=== PATIENT | female | born 1990 | race Caucasian/White ===

== ENCOUNTER → 2016-05-26 | Outpatient (CLI) | payer OTHER ==
[~2016-05-26] MED LIST: /MOM400 PO; ACET50TA PO; ALBUTEROL INHALATION; AMO250 PO; AMO500 PO; ANUS2.5C2 TOP; AUG875 PO; BLEPHGTTS TOPICAL; COLA50CA3 PO; DIFLUC150 PO; DOXYCYC100 PO; FLAGYL500 PO; IBUP600T; IBUP600T26 PO; IBUP80TA PO; NASACORTAQ NASALLY; PERC5TAB8; ROBITUSSDM PO; TRANSDERM TOPICAL; YAZ PO; [UNRECOGNIZED DRUG - OTHER] PO
[2016-05-26 10:30] LABS: BASO % 0.4 % (0.0-1.0); EOS # 0.1 K/mm3 (0.0-0.50); EOS % 1.5 % (0.0-3.0); LARGE UNSTAINED CELL # 0.1 K/mm3 (0.0-0.4); LARGE UNSTAINED CELL % 1.9 % (0.0-4.0); LYMPH % 29.3 % (24.0-44.0); MEAN CORPUSCULAR HEMOGLOBIN 28.3 pg (27.0-33.0); MEAN CORPUSCULAR HGB CONC 33.4 g/dl (32.0-36.5); MEAN CORPUSCULAR VOLUME 84.7 fl (80.0-96.0); MONO # 0.3 K/mm3 (0.0-0.8); MONO % 4.7 % (0.0-5.0); NEUTROPHILS % 62.2 % (36.0-66.0); PLATELET COUNT, AUTOMATED 244 k/mm3 (150-450); RED CELL DISTRIBUTION WIDTH 13.4 % (11.5-14.5); WHITE BLOOD COUNT 6.5 K/mm3 (4.0-10.0)
[2016-05-26 11:31] LABS: HBsAg Prenatal NEGATIVE (NEGATIVE)
== END ==
LOC: M LAB 09:53
PROVIDERS: ATTEND Advanced Practice Midwife
DX: Z34.81 Encounter for supervision of other normal pregnancy, first trimester (principal)

== ENCOUNTER → 2016-05-28 | Outpatient (REF) | payer OTHER | LOC: M LAB REF 17:14 | PROVIDERS: ATTEND Advanced Practice Midwife | DX: Z34.81 Encounter for supervision of other normal pregnancy, first trimester (principal) ==

== ENCOUNTER → 2016-06-06 | Outpatient (CLI) | payer OTHER ==
[2016-06-06 09:07] LABS: MEAN CORPUSCULAR HEMOGLOBIN 27.7 pg (27.0-33.0); MEAN CORPUSCULAR HGB CONC 32.6 g/dl (32.0-36.5); MEAN CORPUSCULAR VOLUME 84.8 fl (80.0-96.0); RED CELL DISTRIBUTION WIDTH 13.7 % (11.5-14.5); WHITE BLOOD COUNT 7.7 K/mm3 (4.0-10.0)
[2016-06-06 09:30] LABS: ALT/SGPT 18 U/L (12-78); AST/SGOT 11 U/L (15-37); BILIRUBIN,TOTAL 0.3 MG/DL (0.2-1.0); CREATININE FOR GFR 0.49 MG/DL (0.55-1.02); CREATININE, SERUM 0.5 MG/DL (0.6-1.0); GLOMERULAR FILTRATION RATE > 60.0 (>60); URIC ACID 3.9 MG/DL (2.6-6.0)
== END ==
LOC: M LAB 08:25
PROVIDERS: ATTEND Advanced Practice Midwife
DX: Z34.81 Encounter for supervision of other normal pregnancy, first trimester (principal)

== ENCOUNTER → 2016-06-25 | Outpatient (REF) | payer OTHER | LOC: M LAB REF 17:05 | PROVIDERS: ATTEND Advanced Practice Midwife | DX: Z34.81 Encounter for supervision of other normal pregnancy, first trimester (principal) ==

== ENCOUNTER → 2016-07-22 | Outpatient (CLI) | payer OTHER ==
[2016-07-22 18:49] LABS: FREE T4 0.93 NG/DL (0.76-1.46)
--- NOTE | 2016-08-03 02:56 | REP ---
Clinical: Anatomical evaluation. Comparison: None . Findings: Examination demonstrates a single live intrauterine in breech/transverse presentation. motion is identified by technologist. Placenta is noted posteriorly and grade zero without evidence for placenta previa or abruption. Amniotic fluid volume is normal. Cervix measures 4.7 cm in length and appears closed. No evidence for nuchal cord. Gestational age by current measurements 18 weeks 5 days with MANA 12/18/2016 . FHR equals 150 beats per minute. BPD 4.3 cm 18-week 6 days HC 15.4 cm 18 weeks 2 days AC 13.8 cm 19 weeks 2 days FL 3.0 cm 19 weeks 1 day HL 2.7 cm 18 weeks 3 days HC/AC ratio 1.11 Estimated weight 273 grams ( 59th percentile). Anatomical assessment demonstrates normal structures including cranium, choroid plexus, cavum, lungs, diaphragm, stomach, cord insertion/three-vessel cord, kidneys/bladder, spine, and upper extremities. Limited evaluation of the posterior fossa, facial features, heart/ventricular outflow tracts, and lower extremities noted Impression: Anatomical limitations as described above may warrant reevaluation. The remainder of the anatomical assessment is normal. Estimated weight is normal. Signed by Romero Vu MD 08/03/2016 02:46 A
== END ==
LOC: M SMT 12:55
PROVIDERS: ATTEND Advanced Practice Midwife
DX: Z36 Encounter for antenatal screening of mother (principal); Z3A.18 18 weeks gestation of pregnancy

== ENCOUNTER → 2016-09-08 | Outpatient (CLI) | payer OTHER ==
[~2016-09-08] MED LIST changes: +COLA100C5 PO; +IBUP-1114 PO; +MOM30SS PO; +PRENTAB9 PO
--- NOTE | 2016-09-08 10:15 | REP ---
OB ULTRASOUND: Real-time sonographic evaluation of the gravid uterus performed utilizing transabdominal and endovaginal technique. There is a single living intrauterine gestation, estimated gestational age 25 weeks 4 days. EDC 12/18/2016. Today's measurements indicate appropriate growth. BPD 64 mm 25 weeks 6 days, 54th percentile HC 238 mm 25 weeks 6 days, 54th percentile AC 224 mm 26 weeks 6 days, 75th percentile FL 49 mm 26 weeks 4 days, 72nd percentile HC/AC ratio 1.06 within normal range. Estimated weight 955 grams, 70th percentile. Cervix is closed and measures 3.5 cm in length. heart rate 150 beats per minute. SEEN/GROSSLY UNREMARKABLE Lateral ventricles Yes Posterior fossa Yes Upper lip Yes Four-chamber heart Yes LVOT Yes RVOT Yes Stomach Yes Cord insertion Yes Three vessel cord Yes Kidneys Yes Bladder Yes Spine Yes position breech. Placenta posterior and grade 0 with no previa or abruption. Amniotic fluid within normal limits. Signed by Rigo Jason MD 09/08/2016 01:26 P
== END ==
LOC: M SMT 08:39
PROVIDERS: ATTEND Advanced Practice Midwife
DX: Z36 Encounter for antenatal screening of mother (principal); Z3A.25 25 weeks gestation of pregnancy

== ENCOUNTER → 2016-09-17 | Outpatient (CLI) | payer OTHER ==
[2016-09-17 13:30] LABS: MEAN CORPUSCULAR HEMOGLOBIN 29.2 pg (27.0-33.0); MEAN CORPUSCULAR HGB CONC 34.5 g/dl (32.0-36.5); MEAN CORPUSCULAR VOLUME 84.7 fl (80.0-96.0); RED CELL DISTRIBUTION WIDTH 14.7 % (11.5-14.5); WHITE BLOOD COUNT 9.3 K/mm3 (4.0-10.0)
== END ==
LOC: M SMT 09:20
PROVIDERS: ATTEND Advanced Practice Midwife
DX: Z34.82 Encounter for supervision of other normal pregnancy, second trimester (principal)

== ENCOUNTER → 2016-10-23 | Outpatient (CLI) | payer OTHER ==
--- NOTE | 2016-10-24 14:29 | REP ---
Clinical: Anatomical re-evaluation. Comparison: 09/08/2016 . Findings: Examination demonstrates a single live intrauterine in cephalic presentation. motion is identified by technologist. Placenta is noted posteriorly and grade one without evidence for placenta previa or abruption. Amniotic fluid volume is normal. Cervix measures 4.8 cm in length and appears closed. No evidence for nuchal cord. Gestational age by first US 32 weeks 0 days with MANA 12/18/2016 . Gestational age by current measurements 32 weeks 4 days with MANA 12/14/2016 . FHR equals 124 beats per minute. Amniotic fluid index = 11.8 cm. Estimated weight 2122 grams ( 66 percentile). Anatomical assessment demonstrates normal structures including cranium, choroid plexus, cavum, cerebellum/posterior fossa, lungs, four-chamber heart/ventricular outflow tracts, diaphragm, stomach, cord insertion/three-vessel cord, kidneys/bladder, spine, and lower extremities. Impression: Single live intrauterine currently in cephalic presentation. No evidence for nuchal cord. In conjunction with prior examinations, anatomical assessment is complete and normal. No gross abnormalities are identified. Signed by Romero Vu MD 10/23/2016 09:38 P
== END ==
LOC: M SMT 13:44
PROVIDERS: ATTEND Specialist
DX: O36.5933 Maternal care for other known or suspected poor fetal growth, third trimester, fetus 3 (principal); Z3A.32 32 weeks gestation of pregnancy

== ENCOUNTER → 2016-11-21 | Outpatient (REF) | payer OTHER | LOC: M LAB REF 13:24 | PROVIDERS: ATTEND Obstetrics & Gynecology | DX: Z34.83 Encounter for supervision of other normal pregnancy, third trimester (principal) ==

== ENCOUNTER → 2016-11-21 | Outpatient (CLI) | payer OTHER ==
--- NOTE | 2016-11-24 16:42 | REP ---
REASON: Followup growth. COMPARISON: Multiple latest. Multiple sonographic images of the gravid uterus show a single living intrauterine gestation in the cephalic presentation. Doppler interrogation of the heart shows a heart rate of 150 beats per minute. The placenta is posterior and not low lying. The subjective amniotic fluid volume is normal. The calculated amniotic fluid index is 8.1 which is within the expected range of 7.7 to 24.8. Doppler interrogation of the umbilical artery shows an AB ratio is 2.5. This is within the normal range. BPD 8.7 cm = 35 weeks 1 day HC 33.3 = 38 weeks 0 days AC 32.3 cm = 36 weeks 1 day FL 7.0 cm = 35 weeks 6 days Estimated weight is 2866 grams which is at the 54th percentile for a 36 week 1 day gestational age. Full anatomical screen was performed on prior exams. IMPRESSION: Single living intrauterine gestation as described with an estimated gestational age of 36 weeks 0 days via composite criteria and estimated date of delivery of 12/19/2016 by today's examination. Signed by Gerardo Rojas DO 11/26/2016 02:25 P
== END ==
LOC: M SMT 13:54
PROVIDERS: ATTEND Advanced Practice Midwife
DX: O26.843 Uterine size-date discrepancy, third trimester (principal); Z3A.36 36 weeks gestation of pregnancy

== ENCOUNTER 2016-11-30 12:13 | Outpatient (CLI) | payer OTHER ==
[~2016-11-30] VITALS: Ht 167.6 cm; Wt 124.0 kg
[~2016-11-30 12:13] MED LIST changes: -COLA100C5 PO; -IBUP-1114 PO; -MOM30SS PO; -PRENTAB9 PO
[2016-11-30 12:56] VITALS: BP 135/67
[2016-11-30] MEDS ORDERED: ACET50TA PO (13:06)
[2016-11-30] MEDS ORDERED: PRENTAB9 PO (13:06)
== END 2016-11-30 20:22 | disposition home or self-care (01) ==
LOC: M LDO 12:13
PROVIDERS: ATTEND Specialist
DX: O47.1 False labor at or after 37 completed weeks of gestation (principal); Z3A.37 37 weeks gestation of pregnancy

== ENCOUNTER 2016-12-10 17:11 | Outpatient (CLI) | payer OTHER ==
[~2016-12-10] VITALS: Ht 167.6 cm; Wt 124.0 kg
[~2016-12-10 17:11] MED LIST changes: +PRENTAB9 PO
[2016-12-10 17:30] VITALS: BP 130/61
[2016-12-10] MEDS: PERCOCET 5MG/325MG TAB PO ONE (18:24)
== END 2016-12-10 19:25 | disposition home or self-care (01) ==
LOC: M LDO 17:11
PROVIDERS: ATTEND Specialist
DX: O26.893 Other specified pregnancy related conditions, third trimester (principal); Z3A.38 38 weeks gestation of pregnancy; R51 Headache; R60.0 Localized edema

== ENCOUNTER 2016-12-12 09:44 | Inpatient (IN) | payer OTHER ==
[2016-12-12] VITALS (25 sets, daily range): BP systolic 109–143; BP diastolic 57–89
[~2016-12-12] VITALS: Ht 167.6 cm; Wt 125.3 kg
[2016-12-12] MEDS ORDERED: LR 1,000 ML IV SCH (13:32)
[2016-12-12] MEDS ORDERED: OXYTOCIN DRIP 30 UNITS in APPROPRIATE DILUENT 1 EA IV SCH (13:45)
[2016-12-12 13:59] LABS: MEAN CORPUSCULAR HEMOGLOBIN 26.1 pg (27.0-33.0); MEAN CORPUSCULAR VOLUME 81.6 fl (80.0-96.0); PLATELET COUNT, AUTOMATED 240 10^3/uL (150-450); RED CELL DISTRIBUTION WIDTH 15.1 % (11.5-14.5); WHITE BLOOD COUNT 8.4 10^3/uL (4.0-10.0)
[2016-12-12] MEDS ORDERED: BUTORPHANOL 2 MG/ML INJ (J0595) IV ONE (19:45)
[2016-12-12] MEDS ORDERED: PROMETHAZINE INJ 25 MG/ML VIAL (J2550) IV ONE (19:45)
--- NOTE | 2016-12-12 23:11 | HPE ---
DATE OF ADMISSION: 12/12/2016 REASON FOR ADMISSION: Induction of labor. HISTORY OF PRESENT ILLNESS: Mrs. Marie is a 26-year-old 3, para 2 who presents at 39 weeks 0 days estimated gestational age by 10 week ultrasound for induction of labor. Her course has been unremarkable. She initiated care in her first trimester and has been appropriate throughout. PAST MEDICAL HISTORY: 1. Fibromyalgia. 2. Anxiety and depression. 3. Asthma. PAST SURGICAL HISTORY: She has had oral surgery and an appendectomy. PAST OBSTETRICAL HISTORY: She is a 3, para 2. She has had two term vaginal deliveries and proven to 8 pounds 13 ounces. MEDICATIONS: Include vitamins. She has no known drug allergies. SOCIAL HISTORY: She denies any alcohol, tobacco or drug use during the . PHYSICAL EXAMINATION: Vital signs: Stable. She is afebrile. General appearance: Well-appearing. No acute distress. She has a category 1 tracing. No contractions on tocometer. Lungs: Clear to auscultation bilaterally. Cardiovascular: Heart regular rate and rhythm. Abdomen: Gravid, nontender. Estimated weight: 3700 grams. Cervical exam: She is 3 cm dilated, 80% effaced, -3 station. LABS: Blood type is A+. Antibody screen is negative. Rubella immune. RPR is nonreactive. Hepatitis surface antigen is negative. HIV is negative. Hepatitis C is nonreactive. Chlamydia and gonorrhea screens are negative. She had a normal 1 hour Glucola. She is GBS negative. ASSESSMENT: 1. Mrs. Marie is a 26-year-old 3, para 2 at 39 weeks 0 days estimated gestational age here for induction of labor. 2. Reassuring status. PLAN: 1. Admit to labor and delivery. CBC, RPR, type and screen. 2. Patient has been thoroughly counseled regarding induction of labor. I discussed medications as well as procedures performed in labor and delivery. She has been verbally consented for emergency surgery, blood products and anesthesia and desires to proceed with admission. I will initiate her on labor induction with Pitocin. TERRY
[2016-12-12] MEDS ORDERED: FENTANYL 2MCG/ML ROPIVACAINE 0.2% IN 0.9% NACL 200ML IVBAG As Ordered ONE (23:56)
[2016-12-13] VITALS (32 sets, daily range): BP systolic 108–144; BP diastolic 53–98
[2016-12-13] MEDS ORDERED: ONDANSETRON 4MG/2ML VIAL (J2405) IV PRN (00:30)
[2016-12-13] MEDS ORDERED: NALOXONE INJ 0.4 MG/1 ML VIAL (J2310) IV PRN (00:30)
[2016-12-13] MEDS ORDERED: diphenhydrAMINE INJ 50MG/ML VIAL (J1200) IV PRN (00:30)
[2016-12-13] MEDS ORDERED: FENTANYL/ROPIVACAINE/NACL BAG 200 ML EPIDURAL SCH (00:30)
[2016-12-13] MEDS ORDERED: EPIDURAL COMMENT XX SCH (00:30)
[2016-12-13] MEDS ORDERED: EPIDURAL/PCA KEYS XX PRN (00:30)
[2016-12-13] MEDS ORDERED: REFRIGERATOR IV KEYS XX PRN (00:30)
[2016-12-13] MEDS ORDERED: OXYTOCIN DRIP 30 UNITS in APPROPRIATE DILUENT 1 EA IV SCH (04:27)
[2016-12-13] MEDS ORDERED: DIBUCAINE 1% OINTMENT 30GM TOP PRN (04:30)
[2016-12-13] MEDS ORDERED: METHYLERGONOVINE MALEATE 0.2 MG TAB PO PRN (04:30)
[2016-12-13] MEDS ORDERED: RHOGAM 300 MCG (1500 IU) INJ (J2790) IM SCH (04:30)
[2016-12-13] MEDS ORDERED: DOCUSATE SODIUM 100 MG CAP PO PRN (04:30)
[2016-12-13] MEDS ORDERED: ACETAMINOPHEN 500 MG TAB PO PRN (04:30)
[2016-12-13] MEDS ORDERED: MOM 30ML SUSPENSION UDC PO PRN (04:30)
[2016-12-13] MEDS ORDERED: MEASLES,MUMPS,RUBELLA VACCINE INJ (MMR-II) (90707) SC SCH (04:30)
[2016-12-13] MEDS ORDERED: ANUSOL HC CREAM 30GM TOP PRN (04:30)
--- NOTE | 2016-12-13 07:42 | DN ---
DATE OF DELIVERY: 12/13/2016 Time of was 0412 hours. Gender: Male. score 9 and 9. Weight was 4060 grams or 8 pounds 15 ounces. Anesthesia: Epidural. Lacerations: None. Counts: 5 laparotomy sponges prior to and after delivery. DELIVERY NOTE: On 12/13/2016, Mrs. Marie, 26-year-old, 3, now para 3, had a spontaneous vaginal delivery at 0412 hours of a liveborn male infant. score 9 and 10. Weight was 4060 grams or 8 pounds 15 ounces. Head was delivered occiput anterior (OA) over intact peritoneum, followed by delivery of right anterior shoulder, left posterior shoulder and corpus. was handed to mom with a good cry. Cord was clamped times two. It was cut by the father of the baby under my direction. Cord blood was then obtained. Placenta was drained and delivered grossly intact. A premixed bag of 500 mL of normal saline with 30 units of Pitocin was bolused along with uterine massage until uterus was firm. On inspection, the cervix, vagina and perineum was grossly intact and hemostatic. Mom and baby recovered in stable condition. The couple has decided to name their son, Link Dejesus.
[2016-12-13] MEDS: PRENATAL VITAMINS CHEWABLE TABLET PO SCH (09:18)
[2016-12-13] MEDS: IBUPROFEN 800 MG TAB PO PRN ×2 (09:19→20:40)
[2016-12-14 05:47] VITALS: BP 132/77
[2016-12-14] MEDS: PRENATAL VITAMINS CHEWABLE TABLET PO SCH (10:12)
[2016-12-14 18:11] VITALS: BP 135/70
[2016-12-15 06:00] VITALS: BP 134/75
[2016-12-15] MEDS: PRENATAL VITAMINS CHEWABLE TABLET PO SCH (08:00)
[2016-12-15] MEDS ORDERED: IBUP-1114 PO (08:29)
[2016-12-15] MEDS ORDERED: ANUS2.5C2 TOP (08:29)
[2016-12-15] MEDS ORDERED: COLA100C5 PO (08:29)
[2016-12-15] MEDS ORDERED: MOM30SS PO (08:29)
== END 2016-12-15 12:15 | disposition home or self-care (01) | DRG 560 ==
LOC: M LDI 09:44 → M OBS 12-13 05:45
PROVIDERS: ADMIT Obstetrics & Gynecology; ATTEND Obstetrics & Gynecology
PROC: 3E033VJ Introduction of Other Hormone into Peripheral Vein, Percutaneous Approach (ICD-10-PCS; 2016-12-12)
PROC: 10907ZC Drainage of Amniotic Fluid, Therapeutic from Products of Conception, Via Natural or Artificial Opening (ICD-10-PCS; 2016-12-12)
PROC: 10E0XZZ Delivery of Products of Conception, External Approach (ICD-10-PCS; principal; 2016-12-13)
DX: O80 Encounter for full-term uncomplicated delivery (principal); Z37.0 Single live birth; Z3A.39 39 weeks gestation of pregnancy; Z79.899 Other long term (current) drug therapy

== ENCOUNTER → 2017-04-20 | Outpatient (REF) | payer OTHER | LOC: M LAB REF 08:58 | DX: Z12.4 Encounter for screening for malignant neoplasm of cervix (principal) ==

== ENCOUNTER → 2018-09-23 | Outpatient (CLI) | payer OTHER ==
[~2018-09-23] MED LIST changes: -/MOM400 PO; -ACET50TA PO; +COLA100C5 PO; +IBUP-1114 PO; +MAPA500T17 PO; +MAPA500T2 PO; +MILK10SU PO; +MOM30SS PO
[2018-09-23 12:13] LABS: BASO % 0.4 % (0.0-1.0); EOS % 0.5 % (0.0-3.0); HEMATOCRIT 38.5 % (36.0-47.0); HEMOGLOBIN 12.6 g/dl (12.0-15.5); LYMPH # 2.3 10^3/uL (1.5-4.5); LYMPH % 27.9 % (24.0-44.0); MEAN CORPUSCULAR HGB CONC 32.7 g/dl (32.0-36.5); MEAN CORPUSCULAR VOLUME 85.6 fl (80.0-96.0); MONO # 0.5 10^3/uL (0.0-0.8); MONO % 6.5 % (0.0-5.0); NEUTROPHILS # 5.3 10^3/uL (1.8-7.7); NEUTROPHILS % 64.2 % (36.0-66.0); PLATELET COUNT, AUTOMATED 263 10^3/uL (150-450); WHITE BLOOD COUNT 8.2 10^3/uL (4.0-10.0)
[2018-09-23 12:36] LABS: TOTAL PROTEIN,RANDOM URINE 10.2 MG/DL (0.0-12.0)
[2018-09-23 12:53] LABS: ALT/SGPT 20 U/L (12-78); BILIRUBIN,TOTAL 0.2 MG/DL (0.2-1.0); CREATININE FOR GFR 0.67 MG/DL (0.55-1.30); FREE T4 0.95 NG/DL (0.76-1.46); GLOMERULAR FILTRATION RATE > 60.0 (>60); GLUCOSE CHALLENGE TEST 1 HOUR 88 MG/DL (LESS THAN 140); LDH LACTATE DEHYDROGENASE 134 U/L (84-246); THYROID STIMULATING HORMONE 0.988 uIU/ML (0.358-3.740); URIC ACID 3.9 MG/DL (2.6-6.0)
[2018-09-23 13:30] LABS: CHLAMYDIA DNA AMPLIFICATION NEGATIVE (NEGATIVE); GC DNA AMPLIFICATION NEGATIVE (NEGATIVE)
[2018-09-23 14:13] LABS: HEMOGLOBIN A1c 5.2 %
[2018-09-24 11:22] LABS: RUBELLA IgG QUALITATIVE IMMUNE (IMMUNE)
[2018-09-24 11:50] LABS: HEPATITIS C VIRUS ABY INDEX 0.1 INDEX (<0.8)
[2018-09-24 11:51] LABS: HIV 1&2 SCREEN CENTAUR NEGATIVE (NEGATIVE)
== END ==
LOC: M LAB 10:21
PROVIDERS: ATTEND Advanced Practice Midwife
DX: Z34.81 Encounter for supervision of other normal pregnancy, first trimester (principal)

== ENCOUNTER → 2018-10-01 | Outpatient (REF) | payer OTHER | LOC: M LAB REF 13:24 | PROVIDERS: ATTEND Advanced Practice Midwife | DX: O99.211 Obesity complicating pregnancy, first trimester (principal); Z3A.00 Weeks of gestation of pregnancy not specified ==

== ENCOUNTER → 2018-10-29 | Outpatient (REF) | payer OTHER | LOC: M LAB REF 13:04 | PROVIDERS: ATTEND Advanced Practice Midwife | DX: Z34.82 Encounter for supervision of other normal pregnancy, second trimester (principal) ==

== ENCOUNTER → 2018-11-19 | Outpatient (CLI) | payer OTHER ==
--- NOTE | 2018-11-19 10:18 | REP ---
OB ULTRASOUND: Real-time sonographic evaluation of the gravid uterus is performed. There is a single living intrauterine gestation. Estimated gestational age 19 weeks 0 days based on LMP as well as today's ultrasound indicating appropriate growth. EDC 04/15/2019. BPD 41 mm = 18 weeks 2 days, 31st percentile HC 157 mm = 18 weeks 4 days, 38th percentile AC 139 mm = 19 weeks 2 days, 56th percentile Femur length 30 mm = 19 weeks 2 days, 57th percentile HC/AC ratio 1.13 within normal range. Estimated weight 275 grams, 51st percentile. Cervix is closed and measures 5.1 cm in length. heart rate 158 beats per minute. SEEN/GROSSLY UNREMARKABLE Lateral ventricles Yes Posterior fossa Yes Upper lip Yes Four-chamber heart Yes LVOT Yes RVOT Yes Stomach Yes Cord insertion Yes Three vessel cord Yes Kidneys Yes Bladder Yes Spine No position: Variable. Placenta: Fundal and grade 1 with no previa or abruption. Amniotic fluid: Within normal limits. Electronically Signed by Rigo Jason MD 11/19/2018 04:36 P
== END ==
LOC: M RAD 08:33
PROVIDERS: ATTEND Advanced Practice Midwife
DX: Z34.82 Encounter for supervision of other normal pregnancy, second trimester (principal); Z36.89 Encounter for other specified antenatal screening; Z3A.18 18 weeks gestation of pregnancy

== ENCOUNTER → 2018-12-17 | Outpatient (CLI) | payer OTHER ==
--- NOTE | 2018-12-17 21:39 | REP ---
OB ULTRASOUND: Real-time sonographic evaluation of the gravid uterus performed. There is a single living intrauterine gestation, estimated gestational age 23 weeks 0 days, EDC 04/15/2019. Today's measurements indicate appropriate growth. BPD 56 mm = 22 weeks 6 days, 48th percentile HC 213 mm = 23 weeks 3 days, 61st percentile AC 180 mm = 22 weeks 6 days, 47th percentile FL 43 mm = 24 weeks 2 days, 76th percentile HC/AC ratio 1.18, within normal range. Estimated weight 595 grams, 59th percentile. Cervix is closed and measures 3.9 cm in length. heart rate 161 beats per minute. SEEN/GROSSLY UNREMARKABLE Lateral ventricles yes Posterior fossa yes Upper lip no Four-chamber heart no LVOT no RVOT no Stomach yes Cord insertion yes Three vessel cord yes Kidneys yes Bladder yes Spine yes position: Breech. Placenta: Fundal and grade 1 with no previa or abruption. Amniotic fluid: Within normal limits. Electronically Signed by Rigo Jason MD 12/18/2018 03:35 P
== END ==
LOC: M RAD 13:53
PROVIDERS: ATTEND Advanced Practice Midwife
DX: Z34.82 Encounter for supervision of other normal pregnancy, second trimester (principal); Z36.89 Encounter for other specified antenatal screening; Z3A.23 23 weeks gestation of pregnancy

== ENCOUNTER → 2019-02-10 | Outpatient (REF) | payer OTHER, SELFPAY | LOC: M SFHCWAGY 10:24 | PROVIDERS: ATTEND Advanced Practice Midwife | DX: O99.213 Obesity complicating pregnancy, third trimester (principal) ==

== ENCOUNTER → 2019-02-28 | Outpatient (CLI) | payer MEDICAID, OTHER ==
[2019-02-28 12:45] LABS: MEAN CORPUSCULAR HEMOGLOBIN 24.8 pg (27.0-33.0); MEAN CORPUSCULAR HGB CONC 30.3 g/dl (32.0-36.5); MEAN CORPUSCULAR VOLUME 81.9 fl (80.0-96.0); PLATELET COUNT, AUTOMATED 251 10^3/uL (150-450); RED BLOOD COUNT 4.03 10^6/uL (4.00-5.40); WHITE BLOOD COUNT 8.9 10^3/uL (4.0-10.0)
== END ==
LOC: M LAB 10:35
PROVIDERS: ATTEND Advanced Practice Midwife
DX: O99.213 Obesity complicating pregnancy, third trimester (principal); Z3A.00 Weeks of gestation of pregnancy not specified

== ENCOUNTER → 2019-03-01 | Outpatient (REF) | payer MEDICAID, OTHER | LOC: M SFHCWAGY 11:26 | PROVIDERS: ATTEND Advanced Practice Midwife | DX: O99.213 Obesity complicating pregnancy, third trimester (principal); E66.9 Obesity, unspecified ==

== ENCOUNTER 2019-03-14 09:27 | Outpatient (CLI) | payer MEDICAID, OTHER ==
[~2019-03-14] VITALS: Ht 167.6 cm; Wt 131.7 kg
[2019-03-14 09:58] VITALS: BP 137/79
--- NOTE | 2019-03-14 12:27 | REP ---
OBSTETRIC SONOGRAPHY: HISTORY: Supervision of . growth study. KINSEY. FINDINGS: Scanning through the gravid uterus demonstrates a viable single intrauterine gestation in a transverse lie, head to the maternal right. motion is observed and heart rate is recorder 139 beats per minute. An anterofundal placenta is seen grade 1 without evidence of previa or abruption. Amniotic fluid is subjectively normal. There has been appropriate interval growth. The following anatomic structures are identified today and felt to be unremarkable: cranium, cavum, lungs, diaphragm, left-sided stomach, kidneys and bladder. Biometry Chart: BPD 9.3 cm = 37 weeks 5 days HC 33.3 cm = 38 weeks 0 days AC 34.1 cm = 38 weeks 0 days FL 7.30 cm = 37 weeks 4 days HL 6.6 cm = 38 weeks 3 days HC/AC ratio normal 0.98 Cephalic index normal 0.79 Estimated weight 3331 grams, 7 pounds 5 ounces, 95th percentile for 35 weeks 3 days. KINSEY normal 15.7 cm. S/D ratio in the umbilical cord artery by Doppler is normal at 2.37. IMPRESSION: Viable single intrauterine gestation at 38 weeks 0 days by today's composite sonographic criteria for expected gestational age estimate based on prior sonography is 35 weeks 3 days. MANA by prior sonography April 15, 2019. 95th percentile weight. Electronically Signed by Geovanny Tobar MD 03/14/2019 07:46 P
[2019-03-14 13:23] VITALS: BP 136/76
--- NOTE | 2019-03-14 15:22 | IPNPDOC ---
Text Note Date of Service The patient was seen on 03/14/19. NOTE Subjective: Patient is a 28-year-old female who is a at 35.3 weeks gestation with an MANA of 04/15/19 based off of her first trimester ultrasound. She initiated care in her first trimester with AWP. Her has been complicated by obesity and a history of preeclampsia with her first . She presents with complaints of contraction that have been occurring for the last week but reports that at 3 am they got more painful and closer together. She denies bloody show or leaking of fluid. She reports active movement. After 4 hours of being in labor and delivery she reports that her contractions have spaced out. She had a growth scan scheduled for this morning that she missed. Done today while she was in L&D. Medical history: fibromyalgia and asthma Surgical history: appendectomy and oral surgery Family history: hypertension, sleep apnea, cancer of cervix and lungs. Social history: Denies being a smoker. Denies drug use or abuse or alcohol use or abuse. . Denies any history of abuse. Past pregnancies: -March 2013: 39 weeks SVE of living female weighting 8 lbs 11 oz complicated by preeclampsia -September 2014: 39 week of living female weighting 8 lbs 13 oz with no complications -November 2016: 39 week of living male weighting 8 lbs 15 oz with no complications. Objective: US and vitals see below. GBS obtained today. FHR 130, moderate variability, positive accelerations, no decelerations. Contractions every 2 to 12 minutes. SVE: 3/thick/high, anterior, no show, soft. No change after 4 hours. A+O x3. Respiratory rate is regular with no use of accessory muscles. Abdomen is gravid and contractions palpate mild. Extremities with generalized edema with no pitting or clonus. Able to eat and keep down a regular lunch. Assessment: IUP at 35.3 weeks gestation, not in active labor Plan: Patient discharged to home with her . Growth sono reviewed with patient. She is to keep her scheduled OB appointment on Thursday. Extensive education done on labor signs. Reviewed access to care, kick count, labor signs, and danger signs to report. VS,Fishbone, I+O VS, Fishbone, I+O Vital Signs Date Time Temp Pulse Resp B/P (MAP) Pulse Ox O2 Delivery O2 Flow Rate FiO2 03/14/19 13:23 98.0 114 20 136/76 (96) NAME: CHASTITY MICHEL DATE OF : 1990 AGE: 28 SEX: F REPORT #: [id number] ROOM: [facility] TECHNOLOGIST: [facility] DOCTOR: PARRISH ZHU CNM Ordered for Date&Time: 03/14/19 1117 cc: [~ rep ct ivnm] Service Date&Time: 03/14/19 1147 EXAMINATION REQUESTED: OBS FOLL UP OR REPEAT EACH GES REASON FOR PATIENT VISIT: LABOR CHECK REASON FOR EXAM/COMMENT: growth and KINSEY OBSTETRIC SONOGRAPHY: HISTORY: Supervision of . growth study. KINSEY. FINDINGS: Scanning through the gravid uterus demonstrates a viable single intrauterine gestation in a transverse lie, head to the maternal right. motion is observed and heart rate is recorder 139 beats per minute. An anterofundal placenta is seen grade 1 without evidence of previa or abruption. Amniotic fluid is subjectively normal. There has been appropriate interval growth. The following anatomic structures are identified today and felt to be unremarkable: cranium, cavum, lungs, diaphragm, left-sided stomach, kidneys and bladder. Biometry Chart: BPD 9.3 cm = 37 weeks 5 days HC 33.3 cm = 38 weeks 0 days AC 34.1 cm = 38 weeks 0 days FL 7.30 cm = 37 weeks 4 days HL 6.6 cm = 38 weeks 3 days HC/AC ratio normal 0.98 Cephalic index normal 0.79 Estimated weight 3331 grams, 7 pounds 5 ounces, 95th percentile for 35 weeks 3 days. KINSEY normal 15.7 cm. S/D ratio in the umbilical cord artery by Doppler is normal at 2.37. IMPRESSION: Viable single intrauterine gestation at 38 weeks 0 days by today's composite sonographic criteria for expected gestational age estimate based on prior sonography is 35 weeks 3 days. MANA by prior sonography April 15, 2019. 95th percentile weight. PARRISH ZHU CNM Mar 14, 2019 15:22
== END 2019-03-14 14:19 | disposition home or self-care (01) ==
LOC: M LDO 09:27
PROVIDERS: ATTEND Advanced Practice Midwife
DX: O47.03 False labor before 37 completed weeks of gestation, third trimester (principal); Z3A.35 35 weeks gestation of pregnancy; O99.213 Obesity complicating pregnancy, third trimester; E66.9 Obesity, unspecified; Z87.59 Personal history of other complications of pregnancy, childbirth and the puerperium

== ENCOUNTER → 2019-03-29 | Outpatient (CLI) | payer OTHER | LOC: M LAB 08:51 | PROVIDERS: ATTEND Advanced Practice Midwife | DX: Z34.83 Encounter for supervision of other normal pregnancy, third trimester (principal); Z36.89 Encounter for other specified antenatal screening ==

== ENCOUNTER 2019-03-30 15:08 | Inpatient (IN) | payer OTHER ==
[2019-03-30] VITALS (15 sets, daily range): BP systolic 118–148; BP diastolic 58–85
[~2019-03-30] VITALS: Ht 167.6 cm; Wt 135.0 kg
[2019-03-30 16:22] LABS: TOTAL PROTEIN,RANDOM URINE 79.9 MG/DL (0.0-12.0)
[2019-03-30 16:32] LABS: HEMATOCRIT 28.3 % (36.0-47.0); HEMOGLOBIN 8.5 g/dl (12.0-15.5); MEAN CORPUSCULAR HEMOGLOBIN 23.8 pg (27.0-33.0); MEAN CORPUSCULAR VOLUME 79.3 fl (80.0-96.0); PLATELET COUNT, AUTOMATED 227 10^3/uL (150-450); RED BLOOD COUNT 3.57 10^6/uL (4.00-5.40); WHITE BLOOD COUNT 9.7 10^3/uL (4.0-10.0)
[2019-03-30 16:49] LABS: ALT/SGPT 9 U/L (12-78); CREATININE FOR GFR 0.47 MG/DL (0.55-1.30); GLOMERULAR FILTRATION RATE > 60.0 (>60)
[2019-03-30 16:50] LABS: BILIRUBIN,TOTAL 0.5 MG/DL (0.2-1.0); LDH LACTATE DEHYDROGENASE 152 U/L (84-246); URIC ACID 5.1 MG/DL (2.6-6.0)
[2019-03-30] MEDS ORDERED: LACTATED RINGER'S 1000 ML IV STA (16:59)
[2019-03-30] MEDS ORDERED: OXYTOCIN DRIP 30 UNITS in IV 1 EA IV SCH (17:00)
--- NOTE | 2019-03-30 17:27 | HPEPDOC ---
Obstetrical History & Physical General Date of Admission Mar 30, 2019 at 16:37 Primary Care Physician: PARRISH ZHU CNM History of Present Illness Patient is 28-year-old at 37.5 wk gestation based on first trimester ultrasound. MANA 04/15/2019. Patient initiated care in first trimester. has been complicated by obesity and history of pre-eclampsia. Patient is A positive and GBS negative. Patient sent to labor and delivery from office for elevated blood pressures. Patient reports positive movement, denies painful contractions, leakage of fluid or vaginal bleeding. Chief Complaint: Pre-eclamsia, Induction of labor Information Provided By: Patient Age: 28 : 4 Term: 3 Pre-term: 0 Abortions: 0 Livin Care Care: Good Care Dating Final EDC: Apr 15, 2019 Final EDC by: 1st trimester (US) LMP: Jun 14, 2018 1st Trimester Date: Sep 02, 2018 EGA at Admission: 37.5 Antepartum Course Diagnos(e)s Pre-eclampsia Height (inches): 66 Pre- weight (lbs.): 260 Admission Weight (lbs.): 297 Change in Weight (lbs.): 37 Past Medical History Past Obstetrical History #1: Past Obstetrical History: Primgravida Date of Delivery: Mar 26, 2013 Gestation: 39 Type of Delivery: Spontaneous Vaginal Del. Sex of : Female Weight of (grams): 3941 Complications: Yes (preeclampsia) Past Obstetrical History #2: Past Obstetrical History: Multigravida Date of Delivery: Sep 23, 2014 Gestation: 39 Type of Delivery: Spontaneous Vaginal Del. Sex of : Female Weight of (grams): 3997 Complications: No Past Obstetrical History #3: Past Obstetrical History: Multigravida Date of Delivery: Nov 23, 2016 Gestation: 39 Type of Delivery: Spontaneous Vaginal Del. 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 pertinent history Past Medical History Medical History asthma, allergic rhinitis, fibromyalgia, obesity, migraines, preeclampsia Surgical History: Appendectomy, [place] teeth Family History Significant Family History: Cancer (cervical, lung), Hypertension, Other (sleep apnea, vit D deficiency, blood clots) Social History Marital Status: Family situation: Spouse/partner home Psychosocial History: No pertinent psych hx * Smoker: non-smoker Alcohol: Denies Drugs: denies Abuse Violence Screening Have you been hit/kicked/slapp: No Have you been sexually assault: No Allergies Coded Allergies: adhesive (Verified Allergy, Unknown, BLISTERS , 03/30/19) Medications Scheduled PRN Acetaminophen (Mapap) 500 Mg Tab, 1,000 MG PO Q6HP PRN for PAIN Physical Examination Physical Examination GENERAL: Alert and oriented times three. BREAST: . ABDOMEN: Gravid and non-tender to touch. FETUS: Is vertex (VTX) by sterile vaginal examination (SVE), fetus is vertex (VTX) by Zachery and bedside ultrasound. HEART RATE: Regular rate and rhythm. LUNGS: Clear to auscultation (CTA). EXTREMITIES: 2+ lower extremity edema. No clonus. Deep tendon reflexes (DTRs) + 2. Vital Signs/I&O Vital Signs Date Time Temp Pulse Resp B/P (MAP) Pulse Ox O2 Delivery O2 Flow Rate FiO2 03/30/19 16:02 109 18 147/85 (105) 03/30/19 15:27 97.8 Laboratory Data 24H LABS Laboratory Tests 2 03/30/19 15:45: Urine Random Creatinine 189.0, Urine Random Total Protein 79.9H 03/30/19 15:54: Nucleated Red Blood Cells % (auto) 0.0 03/30/19 16:42: Serology Scanned Report Hepatitis B Testing CBC/BMP Laboratory Tests 03/30/19 15:54 Pertinent Laboratoy Data Blood Type: A+ RBC Antibody Screen: Negative HIV: Negative Hepatitis B: Negative Hepatitis C: Negative Rapid Plasma Reagin: Nonreactive Rubella: Immune Chlamydia/Gonorrhea: Negative Group B Streptococcus: Negative Glucose Tolerance Test: 103 Anatomy Ultrasound Ultrasound Date: Jan 19, 2019 Placenta Location: Fundal Normal Anatomy: Yes Placenta Previa: No Estimated Weight (grams): 275 (51%) Other Ultrasounds 09/02/18-SIUP +FH, crl 1.49cm, 7.6wk 11/19/1801-fwpuffv-ZTI 275g (51%), AFV normal, fundal placenta 12/17/18-anatomy followup-EFW 595g (59%), AFV normal, anatomy normal 03/14/2019-EFW 3331g (95%), transverse, KINSEY 15.7 cm Steroid Therapy Steroid Therapy: No Vaginal Examination Dilation: 3 cm Effacement: 80% Station: -3 Cervical Consistency: Soft Cervical Position: Posterior Presentation: Cephalic presentation Assessment Heart Rate (FHR): 130 Variability: Moderate Accelerations: Positive Decelerations: None Tocometer Contractions: Yes Frequency: irregular Duration: less than 60 seconds Strength: palpated as mild Assessment/Plan Assessment SIUP at 37.5wk gestation, FHR category 1, pre-eclampsia, obesity Plan Admit labor and delivery. Diet: clears. Group B Streptococcus (GBS) negative. Labs and intravenous (IV) per unit protocol. Counseled on Pitocin for induction of labor (IOL). Lactated Ringers (LR): Bolus 500 mL prior to epidural, then at 125 mL/hr. Anesthesia consult per patient request. Anticipate cervical change Anticipate normal spontaneous delivery (). C-S as appropriate. PARRISH ZHU CNM Mar 30, 2019 17:27
[2019-03-30] MEDS: LR 1,000 ML IV SCH (17:46)
[2019-03-30] MEDS ORDERED: BUTORPHANOL 2 MG/ML INJ (J0595) IV ONE (21:00)
[2019-03-30] MEDS ORDERED: PROMETHAZINE INJ 25 MG/ML VIAL (J2550) IV ONE (21:00)
[2019-03-31] VITALS (51 sets, daily range): BP systolic 102–159; BP diastolic 50–90
[2019-03-31] MEDS: LR 1,000 ML IV SCH ×2 (06:48→11:45)
[2019-03-31] MEDS ORDERED: PROMETHAZINE INJ 25 MG/ML VIAL (J2550) IV ONE (07:00)
[2019-03-31] MEDS ORDERED: BUTORPHANOL 2 MG/ML INJ (J0595) IV ONE (07:00)
--- NOTE | 2019-03-31 07:35 | IPNPDOC ---
Obstetrical Progress Note Date of Service Mar 31, 2019 Subjective Patient desires an epidural prior to AROM. Objective Vital Signs Date Time Temp Pulse Resp B/P (MAP) Pulse Ox O2 Delivery O2 Flow Rate FiO2 03/31/19 06:55 94 136/74 (94) 03/31/19 06:55 17 03/31/19 03:06 97.9 Assessment Heart Rate (FHR): 130 Variability: Moderate Accelerations: Positive Decelerations: None Heart Rate Tracing: Category I Tocometer Contractions: Yes Frequency: regular Sterile Vaginal Examination Dilation: 5 cm Effacement (%): 80% Station: -2 Cervical Consistency: Soft Cervical Position: Anterior Postion/Presentation: Cephalic presentation Assessment and Plan Age: 28 EGA at Admission: 37.5 Weeks & Days 37.6 weeks Status: Reassuring Group B Streptococcus: Negative Anticipate: Vaginal Delivery Additional Comments IV Pitocin at 20 mu/min. Anesthesia notified for epidural. Consider AROM after patient is comfortable with epidural. PARRISH ZHU CNM Mar 31, 2019 07:35
[2019-03-31 07:47] LABS: HEMATOCRIT 27.5 % (36.0-47.0); HEMOGLOBIN 8.2 g/dl (12.0-15.5); MEAN CORPUSCULAR HEMOGLOBIN 23.6 pg (27.0-33.0); MEAN CORPUSCULAR HGB CONC 29.8 g/dl (32.0-36.5); MEAN CORPUSCULAR VOLUME 79.3 fl (80.0-96.0); PLATELET COUNT, AUTOMATED 216 10^3/uL (150-450); RED BLOOD COUNT 3.47 10^6/uL (4.00-5.40); WHITE BLOOD COUNT 8.9 10^3/uL (4.0-10.0)
[2019-03-31] MEDS ORDERED: FENTANYL 2MCG/ML ROPIVACAINE 0.2% IN 0.9% NACL 100ML IVBAG As Ordered ONE (08:05)
[2019-03-31] MEDS ORDERED: EPIDURAL/PCA KEYS XX PRN (09:30)
[2019-03-31] MEDS ORDERED: REFRIGERATOR IV KEYS XX PRN (09:30)
[2019-03-31] MEDS ORDERED: FENTANYL/ROPIVACAINE/NACL BAG 100 ML EPIDURAL SCH (09:30)
[2019-03-31] MEDS ORDERED: ePHEDrine SULFATE 25 MG/5 ML(5MG/ML) SYRINGE IV PRN (09:30)
[2019-03-31] MEDS ORDERED: NALOXONE INJ 0.4 MG/1 ML VIAL (J2310) IV PRN (09:30)
[2019-03-31] MEDS ORDERED: EPIDURAL COMMENT XX SCH (09:30)
[2019-03-31] MEDS ORDERED: diphenhydrAMINE INJ 50MG/ML VIAL (J1200) IV PRN (09:30)
[2019-03-31] MEDS ORDERED: LACTATED RINGER'S 1000 ML IV PRN (09:30)
[2019-03-31] MEDS ORDERED: ONDANSETRON 4MG/2ML VIAL (J2405) IV PRN ×2 (09:30→12:45)
[2019-03-31] MEDS ORDERED: OXYTOCIN 30 UNITS IN 0.9% NaCl 500ML IV BAG (J2590) As Ordered ONE (12:41)
[2019-03-31] MEDS ORDERED: ACETAMINOPHEN TAB 650MG DOSE (2X325MG) PO PRN (12:45)
[2019-03-31] MEDS ORDERED: miSOPROStol 200 MCG TAB (S0191) PR ONE (12:45)
[2019-03-31] MEDS ORDERED: ACETAMINOPHEN 500 MG TAB PO PRN (12:45)
[2019-03-31] MEDS ORDERED: OXYTOCIN DRIP 30 UNITS in IV 1 EA IV ONE (12:45)
[2019-03-31] MEDS ORDERED: DOCUSATE SODIUM 100 MG CAP PO PRN (12:45)
[2019-03-31] MEDS ORDERED: DIBUCAINE 1% OINTMENT 30GM TOP PRN (12:45)
[2019-03-31] MEDS ORDERED: IBUPROFEN 600 MG TAB PO PRN (12:45)
[2019-03-31] MEDS ORDERED: MEASLES,MUMPS,RUBELLA VACCINE INJ (MMR-II) (90707) SC SCH (12:45)
[2019-03-31] MEDS ORDERED: RHOGAM 300 MCG (1500 IU) INJ (J2790) IM SCH (12:45)
[2019-03-31] MEDS ORDERED: METHYLERGONOVINE MALEATE 0.2 MG TAB PO PRN (12:45)
[2019-03-31] MEDS ORDERED: IBUPROFEN 800 MG TAB PO PRN (12:45)
--- NOTE | 2019-03-31 13:46 | DN ---
DATE OF DELIVERY: 03/31/2019 PREDELIVERY DIAGNOSIS: 37 weeks, preeclampsia. POSTDELIVERY DIAGNOSIS: Delivered. PROCEDURE: Spontaneous vaginal delivery. TRAINING AND DEVELOPMENT HEAD: Dr. Jose Manuel Holley MD ANESTHESIA: Epidural. ESTIMATED BLOOD LOSS: 500 mL. FINDINGS: 4150 grams, 9 pound 2 ounce female . scores 8 and 9. DELIVERY SUMMARY: After a 10 minute second stage, the patient had spontaneous delivery of a 9 pound 2 ounce female infant, scores 8 and 9, under epidural anesthesia. There was no nuchal cord. The shoulders delivered with ease. The infant was handed to the mother and cried immediately. The cord was doubly clamped and cut. The placenta delivered spontaneously and appeared to be intact. The patient received IV Pitocin immediately after delivery of the placenta. There were no vaginal lacerations present. Due to immediate gush of fluid with blood with delivery of the placenta, a decision was made to administered Cytotec. 100 mcg of Cytotec per rectum were placed in order to reduce the risk of delayed hemorrhage. Sponge counts were correct.
[2019-03-31] MEDS ORDERED: SLF 3 ML SYR IV PRN (14:45)
[2019-04-01] MEDS: SLF 3 ML SYR IV SCH ×4 (01:27→22:53)
[2019-04-01 06:24] VITALS: BP 139/83
[2019-04-01 07:44] LABS: HEMATOCRIT 28.1 % (36.0-47.0); HEMOGLOBIN 8.2 g/dl (12.0-15.5); MEAN CORPUSCULAR HEMOGLOBIN 23.4 pg (27.0-33.0); MEAN CORPUSCULAR HGB CONC 29.2 g/dl (32.0-36.5); MEAN CORPUSCULAR VOLUME 80.3 fl (80.0-96.0); PLATELET COUNT, AUTOMATED 207 10^3/uL (150-450); WHITE BLOOD COUNT 12.4 10^3/uL (4.0-10.0)
[2019-04-01] MEDS: PRENATAL VITAMINS CHEWABLE TABLET PO SCH (08:09)
[2019-04-01 18:11] VITALS: BP 126/84
[2019-04-02 06:00] VITALS: BP 124/70
[2019-04-02] MEDS: SLF 3 ML SYR IV SCH (06:17)
[2019-04-02] MEDS: PRENATAL VITAMINS CHEWABLE TABLET PO SCH (09:00)
== END 2019-04-02 10:50 | disposition home or self-care (01) | DRG 560 ==
LOC: M LDO 15:08 → M LDI 15:46 → M LDO 16:37 → M LDI 16:37 → M OBS 03-31 15:09
PROVIDERS: ADMIT Advanced Practice Midwife; ATTEND Specialist
PROC: 3E033VJ Introduction of Other Hormone into Peripheral Vein, Percutaneous Approach (ICD-10-PCS; 2019-03-30)
PROC: 10E0XZZ Delivery of Products of Conception, External Approach (ICD-10-PCS; principal; 2019-03-31)
DX: O14.94 Unspecified pre-eclampsia, complicating childbirth (principal); Z37.0 Single live birth; Z3A.37 37 weeks gestation of pregnancy; O99.214 Obesity complicating childbirth; E66.9 Obesity, unspecified; O36.63X0 Maternal care for excessive fetal growth, third trimester, not applicable or unspecified